=== PATIENT | female | born 1995 | race Caucasian/White ===

== ENCOUNTER 2018-09-19 21:16 | Emergency (ER) | payer OTHER ==
[~2018-09-19] VITALS: Ht 160 cm; Wt 71.8 kg
[2018-09-19 21:38] VITALS: BP 134/80
== END 2018-09-20 06:40 | disposition left against medical advice (07) ==
LOC: ER 23:42
DX: R06.02 Shortness of breath (principal); Z53.21 Procedure and treatment not carried out due to patient leaving prior to being seen by health care provider
CPT/HCPCS: 93005